=== PATIENT | male | born 1965 | race Hispanic/Latino ===

== ENCOUNTER 2017-01-16 11:25 | Day surgery (SDC) | payer OTHER ==
[2017-01-16] MEDS ORDERED: NACL 0.9% 1000 ML 1,000 ML IV SCH (12:00)
--- NOTE | 2017-01-16 12:33 | Anesthesia Day of Surgery ---
Anesthesia Day of Surgery - Day of Surgery Patient Examined: Yes Patient H&P Reviewed: Yes Patient is NPO: Yes
--- NOTE | 2017-01-16 12:33 | Anesthesia Consultation ---
Anesthesia Consult and Med Hx Date of service: 01/16/17 - Airway Anesthetic Teeth Evaluation: Good ROM Head & Neck: Adequate Mental/Hyoid Distance: Adequate Mallampati Class: Class II Intubation Access Assessment: Probably Good - Pulmonary Exam CTA: Yes - Cardiac Exam Cardiac Exam: RRR - Pre-Operative Health Status ASA Pre-Surgery Classification: ASA4 Proposed Anesthetic Plan: MAC - Pulmonary Hx Smoking: Yes SOB: Yes COPD: Yes Home Oxygen Therapy: Yes - Cardiovascular System Hx Hypertension: Yes Hx Cardia Arrhythmia: Yes (Diastolic heart failure) - Gastrointestinal Hx Gastroesophageal Reflux Disease: Yes - Other Systems Hx Obesity: Yes
[2017-01-16] MEDS ORDERED: AMIDATE IV ONE ×2 (12:35→12:51)
[2017-01-16] MEDS ORDERED: XYLOCAINE MPF 2% ONE (13:00)
[2017-01-16] MEDS ORDERED: DIPRIVAN 10 MG/ML IV ONE ×2 (13:34)
[2017-01-16] MEDS ORDERED: XYLOCAINE TOPICAL 2% ONE (13:38)
--- NOTE | 2017-01-16 13:51 | Operative Report ---
Operative Report Operative Report: Date of procedure: 01/16/2017 Procedure: Colonoscopy with snare polypectomy, submucosal injection, multiple hot biopsy polypectomies, multiple polyp ablations. Also, Hemoclip application at the anal verge. Attending physician: Esdras Dahl MD Cash Crop Farmer: Esdras Dahl MD Indication: Patient is a 51-year-old. Who is referred for colorectal cancer screening. This colonoscopy is done to evaluate patient so that treatment may be directed based on the findings. Consent: Informed consent was obtained after advising the patient and family regarding nature of this procedure, its indications, potential benefits as well as possible complications including but not limited to bleeding perforation and adverse reaction to medication, infection as well as other cardiopulmonary complications. An informed written and verbal consent was then obtained after due opportunity was provided for questions and answers. Monitoring: Patient was monitored continuously with pulse oximetry and electrocardiographic recordings as well as blood pressure recordings. Vital signs remained stable throughout this procedure with no untoward events. Preoperative assessment: Patient was assessed immediately prior to this procedure for capacity to tolerate monitored anesthesia care and moderate sedation as well as general anesthesia. Patient's ASA classification is 3, Mallampati class is 2, Hyomental distance is 3. Instrument: Crowdx video colonoscope Medications: Propofol, given intravenously in divided doses. For details please refer to anesthesia records. Description of procedure: Patient was placed in the left lateral decubitus position after achieving sedation, a digital rectal examination was performed following which the colonoscope was introduced into the anal verge and advanced to the cecum which was identified by the cecal valve, the appendiceal orifice, as well as by the cecal strap and direct transillumination. The colonoscope was subsequently withdrawn with careful inspection of all mucosal surfaces. Patient tolerated this procedure well and was subsequently taken to the recovery room. The following findings were noted. Findings: Patient had diverticulosis involving multiple segments of the colon. The cecum otherwise was normal. Ascending colon was normal. Transverse colon patient had a 5-6 mm sessile polyp which was removed biopsy polypectomy and retrieved. At the hepatic flexure, patient had another similar polyp that was removed by hot biopsy polypectomy and retrieved. In the sigmoid colon, patient had multiple polyps of varying sizes. All polyps removed by hot biopsy polypectomy and retrieved. There were multiple diminutive polyps in the rectum. These measured between 3-6 m. The smaller polyps were ablated. Most of the other polyps or but removed by hot biopsy polypectomy and retrieved. Very close the anal verge, there was a prominent polyp measuring approximately 8 mm that had a grapelike appearance. This was injected with normal saline to elevate it. It was subsequently removed by snare polypectomy. 2 hemoclips were applied at the site. On the retroflex view at the anal verge, patient had prominent internal hemorrhoids. Impression: Hepatic flexure polyp status post hot biopsy polypectomy. Transverse colon polyp status post hot biopsy polypectomy Multiple sigmoid colon polyp status post hot biopsy polypectomy Multiple rectal polyps status post hot biopsy polypectomy and ablation. Anal verge polyp status post submucosal injection and snare electrocautery. Diverticulosis. Internal hemorrhoids. Plan: Follow pathology report. Avoid non-steroidal for 2 weeks. High-fiber diet. Additional recommendations will be made depending on the pathology report. The anal verge polyp was somewhat worrisome because of it's endoscopic appearance. If there is evidence of invasive cancer patient may require additional workup and treatment. If however the polyp has been removed completely then a repeat colonoscopy should be considered to further inspect this area within a year.
--- NOTE | 2017-01-16 13:52 | Discharge Summary ---
Short Stay Discharge Plan Activity: advance as tolerated Weight Bearing Status: Weight Bear as Tolerated Diet: regular Follow up with: GENOVEVA CEDENO MD [Primary Care Provider] - 7 Days
--- NOTE | 2017-01-16 13:55 | Post Anesthesia Evaluation ---
- Post Anesthesia Evaluation Patient Participated: Yes Airway Patent: Yes Stable Respiratory Function: Yes Nausea/Vomiting: No Temp > 96.8F: Yes Pain Manageable: Yes Adequeate Hydration: Yes Anesthesia Complications: No Block Receding Appropriately: Not Applicable Patient on Ventilator: No
[2017-01-16 18:19] VITALS: BP 158/93
== END 2017-01-16 14:26 | disposition home or self-care (01) ==
LOC: GIO 11:25
PROVIDERS: ATTEND Internal Medicine Gastroenterology
DX: Z12.11 Encounter for screening for malignant neoplasm of colon (principal); K63.5 Polyp of colon; K62.0 Anal polyp; K57.30 Diverticulosis of large intestine without perforation or abscess without bleeding; K64.8 Other hemorrhoids; J44.9 Chronic obstructive pulmonary disease, unspecified; I11.0 Hypertensive heart disease with heart failure; I50.30 Unspecified diastolic (congestive) heart failure; E66.9 Obesity, unspecified; Z68.30 Body mass index [BMI] 30.0-30.9, adult; Z87.891 Personal history of nicotine dependence; Z99.81 Dependence on supplemental oxygen; Z79.82 Long term (current) use of aspirin
CPT/HCPCS: 45381; 45384; 45385; 45388; 88305; J2704; J7030